=== PATIENT | female | born 1945 | race Caucasian/White ===

== ENCOUNTER 2017-08-14 07:53 | Inpatient (IN) ==
--- NOTE | 2017-08-13 22:16 | Discharge Summary ---
<PetegriseldaJenna L - Last Filed: 08/13/17 22:14> Date of Encounter: 08/13/17 - Discharge Diagnosis (1) Loosening of knee joint prosthesis Priority: Primary Status: Acute Qualifiers: Encounter type: initial encounter Qualified Code(s): T84.038A - Mechanical loosening of other internal prosthetic joint, initial encounter; Z96.659 - Presence of unspecified artificial knee joint; Z96.659 - Presence of unspecified artificial knee joint (2) Status post revision of total knee replacement Priority: Primary Status: Acute Qualifiers: Laterality: right Qualified Code(s): Z96.651 - Presence of right artificial knee joint (3) Hypertension Priority: Secondary Status: Chronic Qualifiers: Hypertension type: essential hypertension Qualified Code(s): I10 - Essential (primary) hypertension (4) Hypothyroid Priority: Secondary Status: Chronic Qualifiers: Hypothyroidism type: unspecified Qualified Code(s): E03.9 - Hypothyroidism , unspecified (5) Asthma Priority: Secondary Status: Chronic Qualifiers: Asthma severity: unspecified severity Asthma persistence: unspecified Asthma complication type: unspecified Qualified Code(s): J45.909 - Unspecified asthma, uncomplicated (6) Hyperlipidemia Priority: Secondary Status: Chronic Qualifiers: Hyperlipidemia type: unspecified Qualified Code(s): E78.5 - Hyperlipidemia , unspecified (7) Sarcoidosis Priority: Secondary Status: Chronic (8) Obesity Priority: Secondary Status: Chronic Qualifiers: Obesity type: unspecified obesity type Obesity classification: unspecified obesity classification Serious obesity comorbidity presence: unspecified whether serious comorbidity present Qualified Code(s): E66.9 - Obesity, unspecified; Z68.41 - Body mass index (BMI) 40.0-44.9, adult; Z68.41 - Body mass index (BMI) 40.0-44.9, adult; Z68.41 - Body mass index (BMI) 40.0-44.9, adult; Z68.41 - Body mass index (BMI) 40.0-44.9, adult (9) Obstructive sleep apnea Priority: Secondary Status: Chronic - Discharge Medications Prescriptions: clonazePAM [Klonopin] 1 mg PO QAM #5 tablet Home Medications: Albuterol Sulfate [Proventil Hfa] 6.7 gm IH QID PRN 07/13/15 [History] Amlodipine [Norvasc] 2.5 mg PO DAILY 07/13/15 [History] ClonazePAM [Klonopin] 1 mg PO QAM 07/13/15 [History] Folic Acid/Mv,Fe,Min [Centrum Chewable Tablet] 1 each PO DAILY 07/13/15 [History ] Furosemide [Lasix] 40 mg PO DAILY 07/13/15 [History] Hyoscyamine Sulfate [Levbid] 0.375 mg PO BID 07/13/15 [History] Levothyroxine [Synthroid] 100 mcg PO DAILY 07/13/15 [History] Losartan [Cozaar] 50 mg PO DAILY 07/13/15 [History] Potassium Chloride 10 meq PO DAILY 07/13/15 [History] [place] Oil/[place]rum-3 Fatty Acids [Fish Oil 500 mg Softgel] 1,000 mg PO DAILY 07/13 [History] Sertraline [Zoloft] 200 mg PO DAILY 07/13/15 [History] Terazosin [Hytrin] 10 mg PO HS 07/13/15 [History] Vitamin B Complex [B Complex] 1 each PO DAILY 07/13/15 [History] Hydrocodone/Acetaminophen [[place] 7.5-325 Tablet] 1 - 2 tab PO Q4H PRN #40 tab [Rx] Aspirin Enteric Coated [Aspirin EC] 325 mg PO DAILY #21 tablet.dr 08/13/17 [Rx] Cetirizine HCl [Zyrtec] 10 mg PO DAILY #3 capsule 08/13/17 [Rx] HYDROcodone/Acet 7.5/325 mg [[place] 7.5-325 mg] 1 tab PO Q6H PRN #28 tablet 08/13 [Rx] Aspirin Enteric Coated [Aspirin EC] 81 mg PO DAILY 08/14/17 [History] Cetirizine HCl [Zyrtec] 10 mg PO DAILY 08/14/17 [History] Cholecalciferol (D-3) [Vitamin D] 1,000 unit PO DAILY 08/14/17 [History] LORazepam [Ativan] 1 mg PO BID 08/14/17 [History] Omeprazole [PriLOSEC] 40 mg PO BID 08/14/17 [History] Tizanidine HCl [Zanaflex] 2 mg PO HS PRN 08/14/17 [History] Vit E AC/Vit K1/Safflower Oil [Vitamin E Oil-Vitamin K] 1 appl TP DAILY [History] clonazePAM [Klonopin] 1 mg PO QAM #5 tablet 08/14/17 [Rx] Allergies/Adverse Reactions: 3 Allergy/AdvReac Type Severity Reaction Status Date / Time edrophonium Allergy Severe SEVERE Verified 08/03/17 15:56 ASTHMA ATTACK Thiothixene Allergy Unknown See Verified 08/03/17 15:56 Comments Triflupromazine Allergy Unknown See Verified 08/03/17 15:56 Comments naproxen [From Naprosyn] Allergy Sneezing Verified 08/03/17 15:56 amitriptyline [From Elavil] AdvReac Mild HEART Verified 08/03/17 15:56 RACING epinephrine AdvReac Mild PATIENT Verified 08/03/17 15:56 STATES INTERFERS WITH MEDS meprobamate AdvReac Mild Confusion Verified 08/03/17 15:56 Nortriptyline AdvReac Mild LOSS OF Verified 08/03/17 15:56 BLADDER CONTROL oxymetazoline AdvReac Mild NASAL Verified 08/03/17 15:56 IRRITATION Primary care physician: Oscar Mcintosh Jr, MD - Patient Status Disposition: Transfer Inpatient Rehab Fac Condition: Good - Discharge Instructions Follow Up With: Oscar Mcintosh Jr, MD [Primary Care Provider] - 10/18/17 11:00 am Hans Albright MD [Partnered Physician] - 06/08/18 8:00 am - Hospital Course Hospital course: Ms. Spence is a 72 year old female - Time Spent with Patient Total time spent providing and/or coordinating discharge services: <Frank Benton - Last Filed: 08/17/17 07:52> Date of Encounter: 08/17/17 Time of Encounter: 07:52 - Discharge Diagnosis (1) Hypertension Priority: Secondary Status: Chronic Qualifiers: Hypertension type: essential hypertension Qualified Code(s): I10 - Essential (primary) hypertension (2) Hypothyroid Priority: Secondary Status: Chronic Qualifiers: Hypothyroidism type: unspecified Qualified Code(s): E03.9 - Hypothyroidism , unspecified (3) Asthma Priority: Secondary Status: Chronic Qualifiers: Asthma severity: unspecified severity Asthma persistence: unspecified Asthma complication type: unspecified Qualified Code(s): J45.909 - Unspecified asthma, uncomplicated (4) Hyperlipidemia Priority: Secondary Status: Chronic Qualifiers: Hyperlipidemia type: unspecified Qualified Code(s): E78.5 - Hyperlipidemia , unspecified (5) Sarcoidosis Priority: Secondary Status: Chronic (6) Sleep apnea Priority: Secondary Status: Chronic Qualifiers: Sleep apnea type: unspecified type Qualified Code(s): G47.30 - Sleep apnea , unspecified (7) Obesity Priority: Secondary Status: Chronic Qualifiers: Obesity type: unspecified obesity type Obesity classification: adult class 3 (BMI >= 40) Serious obesity comorbidity presence: unspecified whether serious comorbidity present Body mass index: BMI 40.0-44.9 Qualified Code(s) : E66.9 - Obesity, unspecified; Z68.41 - Body mass index (BMI) 40.0-44.9, adult ; Z68.41 - Body mass index (BMI) 40.0-44.9, adult; Z68.41 - Body mass index (BMI ) 40.0-44.9, adult; Z68.41 - Body mass index (BMI) 40.0-44.9, adult (8) Obstructive sleep apnea Priority: Secondary Status: Chronic (9) Loosening of knee joint prosthesis Priority: Primary Status: Chronic Qualifiers: Encounter type: subsequent encounter Qualified Code(s): T84.038D - Mechanical loosening of other internal prosthetic joint, subsequent encounter; Z96.659 - Presence of unspecified artificial knee joint; Z96.659 - Presence of unspecified artificial knee joint (10) Status post revision of total knee replacement Priority: Primary Status: Acute Qualifiers: Laterality: right Qualified Code(s): Z96.651 - Presence of right artificial knee joint (11) Acute blood loss anemia Priority: Primary Status: Acute Primary care physician: Oscar Mcintosh Jr, MD - Patient Status Functional capacity at discharge: uses cane/walker Overall status at discharge: patient is progressing back to baseline - Hospital Course Hospital course: Ms. Spence is a 72 year old female Status post revision right total knee. Patient with hemoglobin 8.6 asymptomatic. The patient had an uneventful postoperative course. They received antibiotics and physical therapy and were discharged in stable condition. There will follow -up in the office in 2 weeks. - Time Spent with Patient Total time spent providing and/or coordinating discharge services:
--- NOTE | 2017-08-14 08:09 | History & Physical Report ---
Date of Encounter: 08/14/17 Time of Encounter: 08:08 24 Hour HP Update - Instructions Instructions: If the History and Physical is less than 30 days old and was completed prior to A.M. admission and or procedure and has NOT been updated on calendar day of procedure please complete this update prior to performing procedure. - Update Patient reports changes in Medical Condition: No Changes in examination, assessment, or condition: No Changes in Medication: No Preop tests/diagnostics Reviewed: Yes Surgery Remains Indicated: Yes Consent for Planned Operative Procedure(s) Verified: Yes - Pre-Operative Checklist Preoperative Checklist Indicated: No Prophylactic Antibiotic Ordered: Yes Is VTE Prophylaxis Indicated?: Yes
[2017-08-14] MEDS ORDERED: *HR* FentaNYL (PF) 100 MCG/2 ML VIAL ONE (08:16)
[2017-08-14] MEDS ORDERED: *HR* Propofol 200 MG/20 ML VIAL IVP ONE (08:16)
[2017-08-14] MEDS ORDERED: Lidocaine -MPF 2% 2 ML VIAL ONE ×2 (08:16→10:22)
[2017-08-14] MEDS ORDERED: Ringers Solution, Lactated 1,000 ML IVC SCH ×2 (08:30→13:47)
[2017-08-14] MEDS ORDERED: Albuterol 2.5 MG/3 ML NEBULIZER IH ONE (08:30)
[2017-08-14] MEDS ORDERED: Lidocaine -MPF 1% 2 ML VIAL ID ONE (08:30)
[2017-08-14] MEDS ORDERED: CeFAZolin Pre 2,000 MG/100 ML 2,000 MG/100 ML BAG IVPB ONE (08:30)
[2017-08-14] MEDS ORDERED: Albuterol 2.5 MG/3 ML NEBULIZER ONE (08:33)
[2017-08-14] MEDS ORDERED: *HR* Labetalol 20 MG/4 ML SYRINGE IVP PRN (08:59)
[2017-08-14] MEDS ORDERED: *HR* Promethazine 25 MG/ML VIAL IVP PRN (08:59)
[2017-08-14] MEDS ORDERED: Ethanol\\Acetic Acid\\Na Ace\\Ben 1,000 ML IRRIG.SOLN IR ONE (09:02)
[2017-08-14] MEDS ORDERED: Gabapentin 300 MG CAPSULE PO STA (09:03)
[2017-08-14] MEDS ORDERED: Acetaminophen IV 1,000 MG/100 ML INFUS..BTL IVPB ONE (09:03)
--- NOTE | 2017-08-14 09:07 | Anesthesia Evaluation PreOp ---
Date of Encounter: 08/14/17 Time of Encounter: 09:05 - Past History Planned Operation: REvision R-TKR, partial patellectomy Cardiac History: HTN (maitnained on Norvasc, Cozaar, Lasix), Hyperlipidemia ( maintained on Fish Oil), Other (Nuclear Stress 10/2014 - LVEF 69%. Perfusion negative for ischemia/infarct) Pulmonary History: Asthma, COPD (maintained on Proventil, Atrovent), RAHEL Dx ( NOt compliant w/ CPAP) PASTER HAT LINING History: Other (Anxiety/Depression maintained on ATivan. VErtigo maintianed on Meclizine. BiPolar d/o) Other Medical History: Renal (Hx R-kidney Ca s/p mass exicision), Thyroid, GERD (maintained on Prilosec), Other (Irritable bowel syndrome maintained on Hyoscamine, Hx of Sarcoidosis. Cervical spine problem/radiates R-arm sees Chiropractory & takes [place]) Anesthesia History: No Prior Anesthetic Complications, Past Anesthesia (L-TKR 2014, R-TKR 06/2015, septoplasty/Turbinates, x 2, Bladder suspension,) Alcohol Use: none Drug use: none Medications and Allergies Albuterol Sulfate [Proventil Hfa] 6.7 gm IH QID PRN 07/13/15 [History] Amlodipine [Norvasc] 2.5 mg PO DAILY 07/13/15 [History] ClonazePAM [Klonopin] 1 mg PO QAM 07/13/15 [History] Folic Acid/Mv,Fe,Min [Centrum Chewable Tablet] 1 each PO DAILY 07/13/15 [History ] Furosemide [Lasix] 40 mg PO DAILY 07/13/15 [History] Hyoscyamine Sulfate [Levbid] 0.375 mg PO BID 07/13/15 [History] Levothyroxine [Synthroid] 100 mcg PO DAILY 07/13/15 [History] Losartan [Cozaar] 50 mg PO DAILY 07/13/15 [History] Potassium Chloride 10 meq PO DAILY 07/13/15 [History] [place] Oil/[place]-3 Fatty Acids [Fish Oil 500 mg Softgel] 1,000 mg PO DAILY 07/13 [History] Sertraline [Zoloft] 200 mg PO DAILY 07/13/15 [History] Terazosin [Hytrin] 10 mg PO HS 07/13/15 [History] Vitamin B Complex [B Complex] 1 each PO DAILY 07/13/15 [History] Hydrocodone/Acetaminophen [[place] 7.5-325 Tablet] 1 - 2 tab PO Q4H PRN #40 tab [Rx] Aspirin Enteric Coated [Aspirin EC] 325 mg PO DAILY #21 tablet.dr 08/13/17 [Rx] Cetirizine HCl [Zyrtec] 10 mg PO DAILY #3 capsule 08/13/17 [Rx] HYDROcodone/Acet 7.5/325 mg [[place] 7.5-325 mg] 1 tab PO Q6H PRN #28 tablet 08/13 [Rx] Aspirin Enteric Coated [Aspirin EC] 81 mg PO DAILY 08/14/17 [History] Cetirizine HCl [Zyrtec] 10 mg PO DAILY 08/14/17 [History] Cholecalciferol (D-3) [Vitamin D] 1,000 unit PO DAILY 08/14/17 [History] LORazepam [Ativan] 1 mg PO BID 08/14/17 [History] Omeprazole [PriLOSEC] 40 mg PO BID 08/14/17 [History] Tizanidine HCl [Zanaflex] 2 mg PO HS PRN 08/14/17 [History] Vit E AC/Vit K1/Safflower Oil [Vitamin E Oil-Vitamin K] 1 appl TP DAILY [History] 3 Allergy/AdvReac Type Severity Reaction Status Date / Time edrophonium Allergy Severe SEVERE Verified 08/03/17 15:56 ASTHMA ATTACK Thiothixene Allergy Unknown See Verified 08/03/17 15:56 Comments Triflupromazine Allergy Unknown See Verified 08/03/17 15:56 Comments naproxen [From Naprosyn] Allergy Sneezing Verified 08/03/17 15:56 amitriptyline [From Elavil] AdvReac Mild HEART Verified 08/03/17 15:56 RACING epinephrine AdvReac Mild PATIENT Verified 08/03/17 15:56 STATES INTERFERS WITH MEDS meprobamate AdvReac Mild Confusion Verified 08/03/17 15:56 Nortriptyline AdvReac Mild LOSS OF Verified 08/03/17 15:56 BLADDER CONTROL oxymetazoline AdvReac Mild NASAL Verified 08/03/17 15:56 IRRITATION - Meds/Allergy Pre-op Review Medications Reviewed: Yes Allergies Reviewed: Yes Beta Blockers on Current Med List: No Anesthesia Results - Labs Laboratory Tests 08/03/17 08/03/17 08/03/17 15:56 15:56 15:56 WBC 5.3 Hgb 11.8 Hct 36.6 Plt Count 254 PT 10.6 INR 1.0 APTT 35.0 Sodium 143 Potassium 3.9 Chloride 104 Carbon Dioxide 31 H BUN 21 H Creatinine 0.80 Est GFR ( Amer) > 60 Anesthesia Exam O2 Sat Height 1.52 m Height 1.52 m Height 1.52 m Weight 101.151 kg Weight 101.151 kg Weight 101.151 kg O2 Sat by Pulse Oximetry 94 O2 Sat by Pulse Oximetry 94 Vital Signs Temp Pulse Resp BP Pulse Ox 97.9 F 80 18 141/81 94 08/14/17 08:31 08/14/17 08:31 08/14/17 08:31 08/14/17 08:31 08/14/17 08:31 Weight: 5'1" NPO (# of Hours): 223# BMI = 44 - HEENT Pupil (Motor): Pupils equal, EOMI Mallampati: III Teeth: Normal (Fair dentition) Oral Opening: Greater than 3 - PASTER HAT LINING LOC: Oriented PASTER HAT LINING Motor: Normal RUE, Normal LUE, Normal RLE, Normal LLE, Normal Face PASTER HAT LINING Sensory: Normal: RUE, LUE, RLE, LLE, Face - Cardiac Rhythm: Regular Murmur: None - Pulmonary Breath Sounds: bilateral Clear Respiratory Effort: Symmetrical Anesthesia Assess/Plan ASA Score: 3 (MO, RAHEL, Asthma, HTN, HYpothyroidism, GERD, BiPolar d/o.) Modified Gautier Scale for Level of Consciousness: Cooperative, oriented, and tranquil Anesthetic Plan: General, Regional Monitoring Plan: Standard Monitors Recovery Plan: PACU Anes Supervising Prov Stmt: Pt seen/evaluated, R&B Discussed, questions answered and consent obtained. Lebron Cardenas MD
[2017-08-14] MEDS ORDERED: Scopolamine Patch 1.5 MG PATCH.TD72 ONE (09:34)
--- NOTE | 2017-08-14 10:07 | Anesthesia Procedures ---
Date of Encounter: 08/14/17 Time of Encounter: :50 Procedures: Anesthesia - Nerve Block Procedure Date: 08/14/17 Time: 50 Checklist: Correct Patient Identifier Correct side: Right Blood Thinner: No Monitor Applied: EKG, BP, Pulse Oximetry Supplemental Oxygen via Nasal Cannula (L/min): 2 Sedation: Fentanyl (mcg): 100 Indication: Post Op Analgesia Pre-op Neuro Deficits: No Block Type: Femoral, Other (iPACK) Catheter placed: No Sterile Technique: Yes Ultrasound used: Yes Anatomy identified: Yes Visual spread of Local: Yes Neuro Stimulation: Yes Nerve Stimulator Range: 0.2 - 0.4 mA Blood on Needle Aspiration: No Smooth Injection of Local: Yes Pain with Injection of Local: No Prep: Chlorhexadine Needle: 22 x 50 mm Stimuplex, 21 x 100 mm Stimuplex Local: 0.25% Bupivicaine w/Clonidine 20 mcg/cc (for iPACK), Ropivacaine (0.5% with 8 of decadron) Volume (cc): 40 Number of Attempts: 1 Complications: None/effective block Vitals: vss
[2017-08-14] MEDS ORDERED: *HR* Morphine 10 MG/ML VIAL ONE (10:21)
[2017-08-14] MEDS ORDERED: Ondansetron 4 MG/2 ML VIAL ONE (10:22)
[2017-08-14] MEDS ORDERED: ROPIVACAINE HCL/PF 0.5% 30 ML VIAL ONE (10:24)
[2017-08-14] MEDS ORDERED: Bupivacaine/Clonidine Syringe 1 EACH SYRINGE ONE (10:24)
--- NOTE | 2017-08-14 10:49 | Orthopedic Operative Note ---
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 After general anesthesia was administered the operative knee was examined. Findings were noted in the exam under anesthesia. The operative extremity was prepped and draped in sterile surgical fashion. The patient received IV antibiotics prior to skin incision. A standard midline incision was made centered over the patella. The incision was made through the skin and subcutaneous tissue through the old incision. A medial parapatellar tendon approach was performed. Care was taken to preserve tissue along the medial aspect of the patella. And to protect the patella tendon. The deep MCL was released off the medial tibia. The infra patella fat pad was excised. Cultures were obtained as well as Gram stain. Patella was everted. Bipartite patella was excised careful dissection was performed to avoid injury to the extensor mechanism. The knee was brought into flexion the tibial poly-was removed. The femur was well fixed. Attention was then turned to the tibial component. The tibial component was loose and removed with an osteotome without any bone loss. Tibia was recut just below the level of the cement mantle. The tibia was prepared first sized to a 3 reamed to a 14 x 50 stem. The finishing punch was seated. Trial had good fit and fixation. Trial reduction revealed full extension and full flexion no varus valgus instability with an 12 PS Sophy. Trial components removed knee sat for 2 minutes with a Betadine saline solution. It was irrigated out with pulse irrigation. Components were assembled on the back table. The tibia cemented. The 12 PS Sophy was seated and secure. The had full flexion and full extension and excellent patella tracking no varus valgus instability. After the cement hardened the knee was irrigated out again. The knee was closed by the PA. The knee was taken through a range of motion had excellent patella tracking. The extensor mechanism was closed with a running #2 Fiberwire suture and a running #2 PDS suture. The deep tissue was irrigated and closed deep with #1 PDS suture superficially with 0 PDS suture. The skin was closed with Dermabond and skin nivia. The patient was placed in a sterile dressing and postoperative brace. They were extubated and transferred to recovery room in stable condition. Anesthesia: GETA Surgeon: Frank Benton Condition: stable Disposition: PACU
[2017-08-14] MEDS: *HR* HYDROmorphone (PF) 1 MG/ML SYRINGE IVP PRN ×4 (11:29→12:21)
[2017-08-14 11:42] LABS: Hematocrit 30.5 % (35.3-44.9); Hemoglobin 9.9 g/dL (11.5-15.4)
[2017-08-14] MEDS ORDERED: *HR* Magnesium Sulfate 1 GM/2 ML VIAL ONE (12:05)
[2017-08-14] MEDS ORDERED: Ketorolac 30 MG/ML VIAL ONE (12:05)
[2017-08-14] MEDS ORDERED: Lidocaine/EPI 1:100k 2% 20 ML VIAL ONE (12:34)
--- NOTE | 2017-08-14 12:55 | Anesthesia Procedures ---
Date of Encounter: 08/14/17 Time of Encounter: 12:45 Procedures: Anesthesia - Nerve Block Procedure Date: 08/14/17 Time: 12:45 Allergies/Adv Reactions: see emr Pre-op Diagnosis: right knee OA Surgical Procedure: right TKA Checklist: Correct Patient Identifier, Correct procedure, History checked Correct side: Right Blood Thinner: No Monitor Applied: EKG, BP, Pulse Oximetry Supplemental Oxygen via Nasal Cannula (L/min): 2 Indication: Post Op Analgesia (rescue block) Pre-op Neuro Deficits: No Block Type: Femoral (20mL), Other (Adductor Canal - 10mL) Catheter placed: No Sterile Technique: Yes Ultrasound used: Yes Anatomy identified: Yes Visual spread of Local: Yes Neuro Stimulation: No Blood on Needle Aspiration: No Smooth Injection of Local: Yes Pain with Injection of Local: No Prep: Chlorhexadine Needle: 22 x 50 mm Stimuplex Local: Other (0.25% bupivacaine 20mL + 2% lidocaine w/ epi 10mL) Volume (cc): 30 Number of Attempts: 1 Complications: None/effective block Vitals: Vital Signs/O2 Sat/Glucose, Most Recent Temp Pulse Resp BP Pulse Ox 97.2 F L 78 16 137/77 96 08/14/17 12:52 08/14/17 12:52 08/14/17 12:52 08/14/17 12:42 08/14/17 12:52
--- NOTE | 2017-08-14 12:57 | Anesthesia Evaluation Post Op ---
Date of Encounter: 08/14/17 Time of Encounter: 12:55 - Vital Signs Vital Signs: Vital Signs/O2 Sat/Glucose, Most Recent Temp Pulse Resp BP Pulse Ox 97.2 F L 78 16 137/77 96 08/14/17 12:52 08/14/17 12:52 08/14/17 12:52 08/14/17 12:42 08/14/17 12:52 - Lungs Lungs: Clear Ascult./Percussion - Airway Airway: Non-obstructed - Cardiovascular Regular Rate - Mental Status Mental Status: Alert & Oriented, Answers Appropriately - Pain Pain Scale: 3 (able to sleep between care) - Nausea Vomiting Nausea Vomiting: Not Present - Hydration Hydration: NPO - Discharge PostOp Status: Transfer Patient to floor
[2017-08-14] MEDS ORDERED: Temazepam 15 MG CAPSULE PO PRN (13:47)
[2017-08-14] MEDS ORDERED: Sennosides 8.6 MG TABLET PO PRN (13:47)
[2017-08-14] MEDS ORDERED: tiZANidine 4 MG TABLET PO PRN (13:47)
[2017-08-14] MEDS ORDERED: MOM Conc 10 ML UD.LIQ PO PRN (13:47)
[2017-08-14] MEDS ORDERED: Ondansetron 4 MG/2 ML VIAL IVP PRN (13:47)
[2017-08-14] MEDS ORDERED: Naloxone 0.4 MG/ML INJ IVP PRN (13:47)
--- NOTE | 2017-08-14 14:16 | Physician Discharge Referral ---
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 Status: Chronic (2) Status post revision of total knee replacement Priority: Primary Status: Acute (3) Hypertension Priority: Secondary Status: Chronic (4) Hypothyroid Priority: Secondary Status: Chronic (5) Asthma Priority: Secondary Status: Chronic (6) Hyperlipidemia Priority: Secondary Status: Chronic (7) Sarcoidosis Priority: Secondary Status: Chronic (8) Obesity Priority: Secondary Status: Chronic (9) Obstructive sleep apnea Priority: Secondary Status: Chronic Expected Duration of Placement: < 30 days Prognosis: Good Aware of Diagnosis: Patient Aware of Prognosis: Patient - Transfer Medications Prescriptions: clonazePAM [Klonopin] 1 mg PO QAM #5 tablet Home Medications: Albuterol Sulfate [Proventil Hfa] 6.7 gm IH QID PRN 07/13/15 [History] Amlodipine [Norvasc] 2.5 mg PO DAILY 07/13/15 [History] ClonazePAM [Klonopin] 1 mg PO QAM 07/13/15 [History] Folic Acid/Mv,Fe,Min [Centrum Chewable Tablet] 1 each PO DAILY 07/13/15 [History ] Furosemide [Lasix] 40 mg PO DAILY 07/13/15 [History] Hyoscyamine Sulfate [Levbid] 0.375 mg PO BID 07/13/15 [History] Levothyroxine [Synthroid] 100 mcg PO DAILY 07/13/15 [History] Losartan [Cozaar] 50 mg PO DAILY 07/13/15 [History] Potassium Chloride 10 meq PO DAILY 07/13/15 [History] [place] Oil/[place]-3 Fatty Acids [Fish Oil 500 mg Softgel] 1,000 mg PO DAILY 07/13 [History] Sertraline [Zoloft] 200 mg PO DAILY 07/13/15 [History] Terazosin [Hytrin] 10 mg PO HS 07/13/15 [History] Vitamin B Complex [B Complex] 1 each PO DAILY 07/13/15 [History] Hydrocodone/Acetaminophen [[place] 7.5-325 Tablet] 1 - 2 tab PO Q4H PRN #40 tab [Rx] Aspirin Enteric Coated [Aspirin EC] 325 mg PO DAILY #21 tablet. 08/13/17 [Rx] Cetirizine HCl [Zyrtec] 10 mg PO DAILY #3 capsule 08/13/17 [Rx] HYDROcodone/Acet 7.5/325 mg [[place] 7.5-325 mg] 1 tab PO Q6H PRN #28 tablet 08/13 [Rx] Aspirin Enteric Coated [Aspirin EC] 81 mg PO DAILY 08/14/17 [History] Cetirizine HCl [Zyrtec] 10 mg PO DAILY 08/14/17 [History] Cholecalciferol (D-3) [Vitamin D] 1,000 unit PO DAILY 08/14/17 [History] LORazepam [Ativan] 1 mg PO BID 08/14/17 [History] Omeprazole [PriLOSEC] 40 mg PO BID 08/14/17 [History] Tizanidine HCl [Zanaflex] 2 mg PO HS PRN 08/14/17 [History] Vit E AC/Vit K1/Safflower Oil [Vitamin E Oil-Vitamin K] 1 appl TP DAILY [History] clonazePAM [Klonopin] 1 mg PO QAM #5 tablet 08/14/17 [Rx] Allergies/Adverse Reactions: 3 Allergy/AdvReac Type Severity Reaction Status Date / Time edrophonium Allergy Severe SEVERE Verified 08/03/17 15:56 ASTHMA ATTACK Thiothixene Allergy Unknown See Verified 08/03/17 15:56 Comments Triflupromazine Allergy Unknown See Verified 08/03/17 15:56 Comments naproxen [From Naprosyn] Allergy Sneezing Verified 08/03/17 15:56 amitriptyline [From Elavil] AdvReac Mild HEART Verified 08/03/17 15:56 RACING epinephrine AdvReac Mild PATIENT Verified 08/03/17 15:56 STATES INTERFERS WITH MEDS meprobamate AdvReac Mild Confusion Verified 08/03/17 15:56 Nortriptyline AdvReac Mild LOSS OF Verified 08/03/17 15:56 BLADDER CONTROL oxymetazoline AdvReac Mild NASAL Verified 08/03/17 15:56 IRRITATION - Respiratory Orders None Smoking Cessation: Smoking cessation has been advised. For more information, call the [place] Tobacco Quit Line at 0-639-OVUD-NOW. - Ancillary Orders May use pressure relief devices daily prn, May go on HARSHAL w/family/respon constitution party w /meds at nurse discretion PRN, May consult with Dentist, Mental Health Worker, Support Services Manager PRN - Mobility Orders Chair, Ambulate - Rehabiliation Orders Rehab Potential: Good Rehab Orders: ROM Exercises, Evaluation for Physical Therapy, Evaluation for Occupational Therapy - Treatments Skin tear care topically daily PRN per policy List/Other: Opsite placed. Keep dressing intact until first follow up appointment. If > 50% saturated,notify offfice, remove dressing and place appropriate dressing back in place. Dressing is water resistant, not water-proof. OK to shower, but do not get dressing wet. Zipline Closure in place, to be removed at POD#14-16 PT/OT. WBAT to affected extremity. Follow Total Knee Precautions x 6 weeks. Stay in brace at night only. Plan to discontinue brace after first post- operative appointment. ICE and elevate extremity frequently throughout the day. Encourage ambulation exercises. - Diet Orders Regular CERTIFICATION: I certify that the transfer of the above named patient to an Extended Care Facility is necessary for the continuing treatment of the diagnosis listed. The above information is true and accurate reflection of patient's current condition. Confidential - Redisclosure prohibited without a patient's written consent.
[2017-08-14] MEDS: ceFAZolin 2,000 MG in D5% in Water 100 ML IVPB SCH (17:28)
[2017-08-14] MEDS: *HR* Enoxaparin 30 MG/0.3 ML SYRINGE SQ SCH (17:28)
[2017-08-14] MEDS ORDERED: *HR* Enoxaparin 30 MG/0.3 ML SYRINGE SQ SCH (18:00)
[2017-08-14] MEDS: Hyoscyamine SL 0.125 MG TAB.SUBL PO SCH (19:59)
[2017-08-14] MEDS: *HR* LORazepam 1 MG TABLET PO SCH (20:00)
[2017-08-14] MEDS: *HR* HYDROcodone/Acet 5/325 mg TABLET PO PRN (20:09)
[2017-08-15] MEDS: ceFAZolin 2,000 MG in D5% in Water 100 ML IVPB SCH (00:08)
[2017-08-15] MEDS: *HR* Enoxaparin 30 MG/0.3 ML SYRINGE SQ SCH ×2 (04:54→17:12)
[2017-08-15] MEDS: *HR* HYDROcodone/Acet 5/325 mg TABLET PO PRN ×2 (04:54→09:18)
[2017-08-15 05:11] LABS: Hematocrit 32.2 % (35.3-44.9); Hemoglobin 10.4 g/dL (11.5-15.4)
[2017-08-15 05:28] LABS: BUN/Creatinine Ratio 27 (6-26); Blood Urea Nitrogen 22 mg/dL (7-20); Calcium 9.4 mg/dL (8.6-10.8); Carbon Dioxide 28 mEq/L (19-29); Chloride 108 mEq/L (98-109); Glucose 134 mg/dL (70-99); Osmolality,Calculated 301 (280-300); Potassium 4.5 mEq/L (3.5-4.5); Sodium 143 mEq/L (136-145); eGFR For African Americans > 60 (> 60); eGFR For Non-African Americans > 60 (> 60)
--- NOTE | 2017-08-15 06:43 | Orthopedics Progress Note ---
Date of Encounter: 08/15/17 Time of Encounter: 06:43 - Assessment and Plan (1) Hypertension Current Visit: No Status: Chronic Qualifiers: Hypertension type: essential hypertension Qualified Code(s): I10 - Essential (primary) hypertension (2) Hypothyroid Current Visit: No Status: Chronic Qualifiers: Hypothyroidism type: unspecified Qualified Code(s): E03.9 - Hypothyroidism , unspecified (3) Asthma Current Visit: No Status: Chronic Qualifiers: Asthma severity: unspecified severity Asthma persistence: unspecified Asthma complication type: unspecified Qualified Code(s): J45.909 - Unspecified asthma, uncomplicated (4) Hyperlipidemia Current Visit: No Status: Chronic Qualifiers: Hyperlipidemia type: unspecified Qualified Code(s): E78.5 - Hyperlipidemia , unspecified (5) Sarcoidosis Current Visit: No Status: Chronic (6) Sleep apnea Current Visit: No Status: Chronic Qualifiers: Sleep apnea type: unspecified type Qualified Code(s): G47.30 - Sleep apnea , unspecified (7) Obesity Current Visit: No Status: Chronic Qualifiers: Obesity type: unspecified obesity type Obesity classification: adult class 3 (BMI >= 40) Serious obesity comorbidity presence: unspecified whether serious comorbidity present Body mass index: BMI 40.0-44.9 Qualified Code(s) : E66.9 - Obesity, unspecified; Z68.41 - Body mass index (BMI) 40.0-44.9, adult ; Z68.41 - Body mass index (BMI) 40.0-44.9, adult; Z68.41 - Body mass index (BMI ) 40.0-44.9, adult; Z68.41 - Body mass index (BMI) 40.0-44.9, adult (8) Obstructive sleep apnea Current Visit: No Status: Chronic (9) Loosening of knee joint prosthesis Current Visit: No Status: Chronic Qualifiers: Encounter type: subsequent encounter Qualified Code(s): T84.038D - Mechanical loosening of other internal prosthetic joint, subsequent encounter; Z96.659 - Presence of unspecified artificial knee joint; Z96.659 - Presence of unspecified artificial knee joint (10) Status post revision of total knee replacement Current Visit: No Status: Acute Qualifiers: Laterality: right Qualified Code(s): Z96.651 - Presence of right artificial knee joint Subjective Interval history: Patient was seen this morning doing well without complaints. Afebrile vital signs stable. Operative extremity: Neurovascularly intact Dressing clean dry and intact Calves nontender Assessment and plan: Continue with postoperative care Hematocrit 32 Objective Vital signs: Vital Signs Temp Pulse Resp BP Pulse Ox 08/15/17 04:33 97.6 F 82 17 137/57 96 08/15/17 00:02 97.6 F 65 17 124/68 97 08/14/17 20:36 97.6 F 76 17 116/67 96 08/14/17 16:41 97.7 F 79 15 147/63 96 08/14/17 15:50 97.7 F 71 15 111/69 95 08/14/17 14:45 97.7 F 74 15 109/64 96 08/14/17 14:19 97.6 F 81 15 107/55 96 08/14/17 13:45 97.6 F 79 14 124/93 95 08/14/17 13:22 97.0 F L 78 16 108/72 96 08/14/17 13:12 79 16 112/68 93 08/14/17 13:02 71 14 106/70 96 08/14/17 12:52 97.2 F L 78 16 119/78 96 08/14/17 12:42 76 16 137/77 94 08/14/17 12:32 73 14 116/63 92 08/14/17 12:22 97.0 F L 71 14 122/68 93 08/14/17 12:12 76 16 140/78 93 08/14/17 12:02 71 16 145/84 96 08/14/17 11:52 97.0 F L 73 16 131/58 98 08/14/17 11:42 72 16 125/72 93 08/14/17 11:32 70 16 122/74 96 08/14/17 11:22 97.0 F L 68 14 119/62 99 08/14/17 09:39 82 16 154/72 97 08/14/17 08:56 18 141/81 94 08/14/17 08:31 97.9 F 80 18 141/81 94 Intake and Output 08/14/17 08/14/17 08/15/17 15:59 23:59 07:59 Intake Total 150 / 150 100 / 100 Output Total 300 / 300 200 / 200 Balance -300 / -300 150 / 150 -100 / -100 Intake: IV Fluids 100 / 100 Ancef 2,000 MG In Dextrose 5% 100 / 100 100 ML @ 200 mls/hr IVPB Q8HR [facility] Rx#:[id number] Oral 50 / 50 100 / 100 Output: Urine 200 / 200 Estimated Blood Loss 300 / 300 Other: # Voids 1 Weight 101.151 kg 102 kg Patient Weight 08/15/17 23:59 Weight 102 kg - Labs CBC & BMP: 08/15/17 05:01 08/15/17 05:01 Labs: Abnormal lab results Hgb 10.4 g/dL (11.5-15.4) L 08/15/17 05:01 Hct 32.2 % (35.3-44.9) L 08/15/17 05:01 BUN 22 mg/dL (7-20) H 08/15/17 05:01 BUN/Creatinine Ratio 27 (6-26) H 08/15/17 05:01 Glucose 134 mg/dL (70-99) H 08/15/17 05:01 Calculated Osmolality 301 (280-300) H 08/15/17 05:01 - VTE Documentation of Mechanical Device: Venous foot pump, device Consult Discharge Plan - Plan Referrals: Oscar Mcintosh Jr, MD [Primary Care Provider] - Prescriptions: clonazePAM [Klonopin] 1 mg PO QAM #5 tablet
[2017-08-15] MEDS: *HR* HYDROmorphone (PF) 1 MG/ML SYRINGE IVP PRN ×2 (08:12→13:23)
[2017-08-15] MEDS: Vitamin B Complex/Vit C/Vit E 1 EACH TABLET PO SCH ×2 (08:12→10:48)
[2017-08-15] MEDS: Cholecalciferol (D-3) 1,000 UNIT TABLET PO SCH ×2 (08:13→10:48)
[2017-08-15] MEDS: Loratadine 10 MG TABLET PO SCH (08:15)
[2017-08-15] MEDS: amLODIPine 5 MG TABLET PO SCH (08:15)
[2017-08-15] MEDS: clonazePAM 1 MG TABLET PO SCH (08:16)
[2017-08-15] MEDS: *HR* LORazepam 1 MG TABLET PO SCH ×3 (08:16→23:46)
[2017-08-15] MEDS: Hyoscyamine SL 0.125 MG TAB.SUBL PO SCH ×2 (08:17→21:25)
[2017-08-15] MEDS: Multivit/Ca/Min/Fe/FA 1 TAB TABLET PO SCH ×2 (08:17→10:48)
[2017-08-15] MEDS: Aspirin Enteric Coated 81 MG Tablet PO SCH (08:17)
[2017-08-15] MEDS: Furosemide 40 MG TABLET PO SCH (08:17)
[2017-08-15] MEDS: VIT K1 TP SCH (09:09)
[2017-08-15] MEDS: VIT E AC TP SCH (09:09)
[2017-08-15] MEDS: [UNRECOGNIZED DRUG - OTHER] TP SCH (09:09)
[2017-08-15] MEDS: FISH OIL 1000 MG PO SCH (09:09)
--- NOTE | 2017-08-15 12:31 | Event Note ---
Date of Encounter: 08/15/17 Time of Encounter: 12:29 PCR - Right TKR Revision Tibia, partial patellectomy 08/15 Gram Stain - no bacteria POD#.1 Comorbidities: Asthma, RAHEL - CPAP, HTN, Chronic pain Labs: Stable Patient was on bedside commode during PCR rounds, I did not speak with patient. Plan reviewed and discussed with charge nurse and navigator. Pain control: Chronic pain - uncontrolled currently Will change her back to [place] 7.5/325 q 4 hours x 24 hours - Pain meds printed for ECF Clonazepam printed for ECF. Participating in PT. All questions and concerns addressed. Educated on use of incentive spirometer, ambulation, and hydration. Patient educated on post-operative restrictions and care. Addressed: See above D/C plan: D/C to ECF - continuity placed.
[2017-08-15] MEDS: *HR* HYDROcodone/Acet 7.5/325 mg TABLET PO SCH ×2 (15:47→21:26)
[2017-08-15] MEDS ORDERED: Ketorolac 15 MG/ML VIAL IVP PRN (16:48)
[2017-08-16] MEDS: *HR* HYDROcodone/Acet 7.5/325 mg TABLET PO SCH ×2 (00:05→05:02)
[2017-08-16] MEDS: *HR* Enoxaparin 30 MG/0.3 ML SYRINGE SQ SCH ×2 (05:02→17:15)
[2017-08-16 06:16] LABS: Hematocrit 27.3 % (35.3-44.9)
[2017-08-16 06:19] LABS: Hemoglobin 8.6 g/dL (11.5-15.4)
[2017-08-16 06:33] LABS: BUN/Creatinine Ratio 25 (6-26); Blood Urea Nitrogen 20 mg/dL (7-20); Calcium 8.9 mg/dL (8.6-10.8); Carbon Dioxide 32 mEq/L (19-29); Chloride 107 mEq/L (98-109); Glucose 101 mg/dL (70-99); Osmolality,Calculated 299 (280-300); Potassium 3.9 mEq/L (3.5-4.5); Sodium 143 mEq/L (136-145); eGFR For African Americans > 60 (> 60); eGFR For Non-African Americans > 60 (> 60)
--- NOTE | 2017-08-16 08:08 | Orthopedics Progress Note ---
Date of Encounter: 08/16/17 Time of Encounter: 08:08 - Assessment and Plan (1) Hypertension Current Visit: No Status: Chronic Qualifiers: Hypertension type: essential hypertension Qualified Code(s): I10 - Essential (primary) hypertension (2) Hypothyroid Current Visit: No Status: Chronic Qualifiers: Hypothyroidism type: unspecified Qualified Code(s): E03.9 - Hypothyroidism , unspecified (3) Asthma Current Visit: No Status: Chronic Qualifiers: Asthma severity: unspecified severity Asthma persistence: unspecified Asthma complication type: unspecified Qualified Code(s): J45.909 - Unspecified asthma, uncomplicated (4) Hyperlipidemia Current Visit: No Status: Chronic Qualifiers: Hyperlipidemia type: unspecified Qualified Code(s): E78.5 - Hyperlipidemia , unspecified (5) Sarcoidosis Current Visit: No Status: Chronic (6) Sleep apnea Current Visit: No Status: Chronic Qualifiers: Sleep apnea type: unspecified type Qualified Code(s): G47.30 - Sleep apnea , unspecified (7) Obesity Current Visit: No Status: Chronic Qualifiers: Obesity type: unspecified obesity type Obesity classification: adult class 3 (BMI >= 40) Serious obesity comorbidity presence: unspecified whether serious comorbidity present Body mass index: BMI 40.0-44.9 Qualified Code(s) : E66.9 - Obesity, unspecified; Z68.41 - Body mass index (BMI) 40.0-44.9, adult ; Z68.41 - Body mass index (BMI) 40.0-44.9, adult; Z68.41 - Body mass index (BMI ) 40.0-44.9, adult; Z68.41 - Body mass index (BMI) 40.0-44.9, adult (8) Obstructive sleep apnea Current Visit: No Status: Chronic (9) Loosening of knee joint prosthesis Current Visit: No Status: Chronic Qualifiers: Encounter type: subsequent encounter Qualified Code(s): T84.038D - Mechanical loosening of other internal prosthetic joint, subsequent encounter; Z96.659 - Presence of unspecified artificial knee joint; Z96.659 - Presence of unspecified artificial knee joint (10) Status post revision of total knee replacement Current Visit: No Status: Acute Qualifiers: Laterality: right Qualified Code(s): Z96.651 - Presence of right artificial knee joint (11) Acute blood loss anemia Current Visit: No Status: Acute Subjective Interval history: Patient was seen this morning doing well complains of pain right leg. Afebrile vital signs stable. Operative extremity: Neurovascularly intact Dressing clean dry and intact Calves nontender Assessment and plan: Continue with postoperative care hemoglobin 8.6 Objective Vital signs: Vital Signs Temp Pulse Resp BP Pulse Ox 08/16/17 07:12 100.0 F H 75 16 160/66 94 08/16/17 03:51 99.6 F 72 16 149/63 95 08/15/17 23:15 100.3 F H 99 18 159/66 96 08/15/17 18:42 98.2 F 77 17 127/68 95 08/15/17 16:35 98.3 F 76 17 127/66 94 08/15/17 15:57 93 08/15/17 13:21 86 129/66 Intake and Output 08/15/17 08/16/17 08/16/17 23:59 07:59 15:59 Intake Total 50 / 50 Output Total 1300 / 1300 0 / 0 Balance -1250 / -1250 0 / 0 Intake: Oral 50 / 50 Output: Urine 1300 / 1300 0 / 0 Other: # Voids 1 Weight 102.5 kg Patient Weight 08/16/17 23:59 Weight 102.5 kg - Labs CBC & BMP: 08/16/17 05:45 08/16/17 05:45 Labs: Abnormal lab results Hgb 8.6 g/dL (11.5-15.4) L D 08/16/17 05:45 Hct 27.3 % (35.3-44.9) L 08/16/17 05:45 Carbon Dioxide 32 mEq/L (19-29) H 08/16/17 05:45 Glucose 101 mg/dL (70-99) H 08/16/17 05:45 - VTE Documentation of Mechanical Device: Venous foot pump, device Consult Discharge Plan - Plan Referrals: Oscar Mcintosh Jr, MD [Primary Care Provider] - 10/18/17 11:00 am Hans Albright MD [Partnered Physician] - 06/08/18 8:00 am Prescriptions: clonazePAM [Klonopin] 1 mg PO QAM #5 tablet
[2017-08-16] MEDS: Hyoscyamine SL 0.125 MG TAB.SUBL PO SCH ×2 (09:09→20:40)
[2017-08-16] MEDS: Aspirin Enteric Coated 81 MG Tablet PO SCH (09:09)
[2017-08-16] MEDS: Cholecalciferol (D-3) 1,000 UNIT TABLET PO SCH (09:10)
[2017-08-16] MEDS: Multivit/Ca/Min/Fe/FA 1 TAB TABLET PO SCH (09:10)
[2017-08-16] MEDS: Vitamin B Complex/Vit C/Vit E 1 EACH TABLET PO SCH (09:10)
[2017-08-16] MEDS: Loratadine 10 MG TABLET PO SCH (09:10)
[2017-08-16] MEDS: clonazePAM 1 MG TABLET PO SCH (09:10)
[2017-08-16] MEDS: Furosemide 40 MG TABLET PO SCH (09:10)
[2017-08-16] MEDS: amLODIPine 5 MG TABLET PO SCH (09:10)
[2017-08-16] MEDS: FISH OIL 1000 MG PO SCH (09:11)
[2017-08-16] MEDS: VIT K1 TP SCH (09:11)
[2017-08-16] MEDS: VIT E AC TP SCH (09:11)
[2017-08-16] MEDS: [UNRECOGNIZED DRUG - OTHER] TP SCH (09:11)
[2017-08-16] MEDS: *HR* HYDROcodone/Acet 7.5/325 mg TABLET PO PRN ×3 (09:19→18:31)
[2017-08-16] MEDS: *HR* LORazepam 1 MG TABLET PO SCH (17:15)
[2017-08-17] MEDS: *HR* HYDROcodone/Acet 7.5/325 mg TABLET PO PRN ×3 (00:09→11:24)
[2017-08-17] MEDS: *HR* LORazepam 1 MG TABLET PO SCH (00:09)
[2017-08-17] MEDS: *HR* Enoxaparin 30 MG/0.3 ML SYRINGE SQ SCH (05:24)
--- NOTE | 2017-08-17 07:53 | Orthopedics Progress Note ---
Date of Encounter: 08/17/17 Time of Encounter: 07:53 - Assessment and Plan (1) Hypertension Current Visit: No Status: Chronic Qualifiers: Hypertension type: essential hypertension Qualified Code(s): I10 - Essential (primary) hypertension (2) Hypothyroid Current Visit: No Status: Chronic Qualifiers: Hypothyroidism type: unspecified Qualified Code(s): E03.9 - Hypothyroidism , unspecified (3) Asthma Current Visit: No Status: Chronic Qualifiers: Asthma severity: unspecified severity Asthma persistence: unspecified Asthma complication type: unspecified Qualified Code(s): J45.909 - Unspecified asthma, uncomplicated (4) Hyperlipidemia Current Visit: No Status: Chronic Qualifiers: Hyperlipidemia type: unspecified Qualified Code(s): E78.5 - Hyperlipidemia , unspecified (5) Sarcoidosis Current Visit: No Status: Chronic (6) Sleep apnea Current Visit: No Status: Chronic Qualifiers: Sleep apnea type: unspecified type Qualified Code(s): G47.30 - Sleep apnea , unspecified (7) Obesity Current Visit: No Status: Chronic Qualifiers: Obesity type: unspecified obesity type Obesity classification: adult class 3 (BMI >= 40) Serious obesity comorbidity presence: unspecified whether serious comorbidity present Body mass index: BMI 40.0-44.9 Qualified Code(s) : E66.9 - Obesity, unspecified; Z68.41 - Body mass index (BMI) 40.0-44.9, adult ; Z68.41 - Body mass index (BMI) 40.0-44.9, adult; Z68.41 - Body mass index (BMI ) 40.0-44.9, adult; Z68.41 - Body mass index (BMI) 40.0-44.9, adult (8) Obstructive sleep apnea Current Visit: No Status: Chronic (9) Loosening of knee joint prosthesis Current Visit: No Status: Chronic Qualifiers: Encounter type: subsequent encounter Qualified Code(s): T84.038D - Mechanical loosening of other internal prosthetic joint, subsequent encounter; Z96.659 - Presence of unspecified artificial knee joint; Z96.659 - Presence of unspecified artificial knee joint (10) Status post revision of total knee replacement Current Visit: No Status: Acute Qualifiers: Laterality: right Qualified Code(s): Z96.651 - Presence of right artificial knee joint (11) Acute blood loss anemia Current Visit: No Status: Acute Subjective Interval history: Patient was seen this morning doing well complains of pain right leg. Afebrile vital signs stable. Operative extremity: Neurovascularly intact Dressing clean dry and intact Calves nontender Assessment and plan: Continue with postoperative care Discharged today Objective Vital signs: Vital Signs Temp Pulse Resp BP Pulse Ox 08/17/17 07:34 99.1 F 75 18 119/63 95 08/16/17 23:37 98.7 F 86 17 163/77 95 08/16/17 20:48 98 08/16/17 20:23 97.9 F 74 18 138/77 98 08/16/17 16:22 98.5 F 77 15 125/51 94 Intake and Output 08/16/17 08/16/17 08/17/17 15:59 23:59 07:59 Intake Total 525 / 525 Output Total 2600 / 2600 1400 / 1400 Balance -2075 / -2075 -1400 / -1400 Intake: Oral 525 / 525 Output: Urine 2600 / 2600 1400 / 1400 Other: # Voids 1 - Labs CBC & BMP: 08/16/17 05:45 08/16/17 05:45 Labs: Abnormal lab results Hgb 8.6 g/dL (11.5-15.4) L D 08/16/17 05:45 Hct 27.3 % (35.3-44.9) L 08/16/17 05:45 Carbon Dioxide 32 mEq/L (19-29) H 08/16/17 05:45 Glucose 101 mg/dL (70-99) H 08/16/17 05:45 - VTE Documentation of Mechanical Device: Venous foot pump, device Consult Discharge Plan - Plan Referrals: Oscar Mcintosh Jr, MD [Primary Care Provider] - 10/18/17 11:00 am Hans Albright MD [Partnered Physician] - 06/08/18 8:00 am Prescriptions: clonazePAM [Klonopin] 1 mg PO QAM #5 tablet
[2017-08-17] MEDS: Cholecalciferol (D-3) 1,000 UNIT TABLET PO SCH (08:57)
[2017-08-17] MEDS: Multivit/Ca/Min/Fe/FA 1 TAB TABLET PO SCH (08:58)
[2017-08-17] MEDS: amLODIPine 5 MG TABLET PO SCH (08:58)
[2017-08-17] MEDS: Aspirin Enteric Coated 81 MG Tablet PO SCH (08:58)
[2017-08-17] MEDS: Loratadine 10 MG TABLET PO SCH (08:58)
[2017-08-17] MEDS: Hyoscyamine SL 0.125 MG TAB.SUBL PO SCH (08:58)
[2017-08-17] MEDS: clonazePAM 1 MG TABLET PO SCH (08:58)
[2017-08-17] MEDS: Vitamin B Complex/Vit C/Vit E 1 EACH TABLET PO SCH (08:58)
[2017-08-17] MEDS: Furosemide 40 MG TABLET PO SCH (08:59)
[2017-08-17] MEDS: FISH OIL 1000 MG PO SCH (08:59)
[2017-08-17] MEDS: VIT K1 TP SCH (09:01)
[2017-08-17] MEDS: [UNRECOGNIZED DRUG - OTHER] TP SCH (09:01)
[2017-08-17] MEDS: VIT E AC TP SCH (09:01)
[2017-08-17 10:35] VITALS: BP 118/60
== END 2017-08-17 12:00 | DRG 467 ==
LOC: SAMDAY 07:53 → 3NENU 13:04
PROVIDERS: ADMIT Orthopaedic Surgery; ATTEND Orthopaedic Surgery

== ENCOUNTER 2021-03-11 17:54 | Observation (INO) ==
[2021-03-11] MEDS ORDERED: Aspirin 81 MG TAB.CHEW PO ONE (18:01)
[2021-03-11] MEDS ORDERED: Isovue-370 500 ML BOTTLE IVP ONE (18:11)
[2021-03-11] MEDS ORDERED: Ipratropium/Albuterol Neb 3 ML IH ONE (18:12)
[2021-03-11 19:05] LABS: Basophils # 0.1 K/mcL (0.0-0.2); Basophils % 0.9 %; Eosinophils # 0.1 K/mcL (0.0-0.6); Eosinophils % 2.4 %; Hematocrit 38.6 % (35.3-44.9); Hemoglobin 12.4 g/dL (11.5-15.4); Immature Granulocytes % 0.5 % (0-4); Lymphocytes # 1.1 K/mcL (0.6-4.6); Lymphocytes % 19.2 %; Mean Corpuscular HGB Conc 32.1 g/dL (31.6-35.5); Mean Corpuscular Hemoglobin 31.7 pg (28.0-33.3); Mean Corpuscular Volume 98.7 fL (83.0-100.0); Mean Platelet Volume 9.7 fL (9.4-12.4); Monocytes # 0.5 K/mcL (0.0-1.3); Monocytes % 9.3 %; Platelet Count 250 K/mcL (140-400); Red Blood Count 3.91 M/mcL (3.82-4.97); Red Cell Distribution Width 12.8 % (11.5-14.5); Segmented Neutrophils % 67.7 %; White Blood Count 5.8 K/mcL (4.3-11.1)
[2021-03-11 19:09] LABS: Albumin 4.1 g/dL (3.5-5.7); Albumin/Globulin Ratio 1.4 (1.1-2.2); Bilirubin,Indirect 0.3 mg/dL (0.0-1.0); Bilirubin,Total 0.3 mg/dL (0.3-1.0); Total Protein 7.1 g/dL (6.4-8.9)
[2021-03-11 19:11] LABS: BUN/Creatinine Ratio 39 (6-26); Blood Urea Nitrogen 29 mg/dL (8-23); Calcium 9.5 mg/dL (8.6-10.3); Carbon Dioxide 29 mEq/L (23-29); Chloride 105 mEq/L (98-107); Glucose 105 mg/dL (70-105); Osmolality,Calculated 296 (280-300); Potassium 4.3 mEq/L (3.5-5.1); Sodium 140 mEq/L (136-145); Troponin I < 0.03 ng/mL (< 0.04); eGFR For African Americans > 60 (> 60); eGFR For Non-African Americans > 60 (> 60)
[2021-03-11 19:12] LABS: INR 1.1; Prothrombin Time 12.2 Seconds (9.4-12.1)
[2021-03-11 19:15] LABS: Activated Partial Thrombo Time 30.9 Seconds (26.0-36.0)
[2021-03-11] MEDS ORDERED: *HR* Heparin 5,000 UNIT/ML VIAL IVP ONE (20:29)
[2021-03-11] MEDS ORDERED: *HR* Heparin 5,000 UNIT/ML VIAL IVP PRN ×2 (20:29)
[2021-03-11] MEDS ORDERED: Heparin 25,000UNIT/250ML 1/2NS 25,000 UNIT/250 ML IV.SOLN IVC SCH (20:30)
[2021-03-11 20:34] LABS: Bilirubin,Urine Negative (Negative); Blood,Urine Negative (Negative); Clarity,Urine Clear (Clear); Color,Urine Light-Yellow (Yellow); Glucose,Urine (UA) Normal (Normal); Hyaline Casts,Urine Few per lpf (None Seen); Ketones,Urine Negative (Negative); Leukocyte Esterase,Urine Trace (Negative); Nitrite,Urine Negative (Negative); Protein,Urine Negative (Neg-Trace); RBC,Urine 0-3 per hpf (0-3); Specific Gravity,Urine > 1.030 (1.010-1.025); Squamous Epithelial Cell,Urine Few per hpf (None-Few); Urobilinogen,Urine Normal (Normal); WBC,Urine 0-3 per hpf (0-3)
[2021-03-11] MEDS ORDERED: Nitroglycerin 0.4 MG TAB.SUBL SL STA (20:43)
[2021-03-11] MEDS ORDERED: Ondansetron 4 MG/2 ML VIAL IVP PRN (23:13)
[2021-03-11] MEDS ORDERED: Naloxone 0.4 MG/ML INJ IVP PRN (23:13)
[2021-03-11] MEDS ORDERED: Melatonin 3 MG TABLET PO PRN (23:13)
[2021-03-12] MEDS: Acetaminophen 325 MG TABLET PO PRN ×2 (03:00→11:24)
[2021-03-12] MEDS: *HR* LORazepam 1 MG TABLET PO PRN ×2 (03:55→11:24)
[2021-03-12] MEDS ORDERED: Regadenoson 0.4 MG/5 ML SYRINGE IVP ONE (05:56)
[2021-03-12 06:13] LABS: Basophils # 0.1 K/mcL (0.0-0.2); Basophils % 0.9 %; Eosinophils # 0.2 K/mcL (0.0-0.6); Hematocrit 38.6 % (35.3-44.9); Hemoglobin 12.4 g/dL (11.5-15.4); Immature Granulocytes % 0.1 % (0-4); Lymphocytes # 2.6 K/mcL (0.6-4.6); Lymphocytes % 32.5 %; Mean Corpuscular HGB Conc 32.1 g/dL (31.6-35.5); Mean Corpuscular Hemoglobin 31.3 pg (28.0-33.3); Mean Corpuscular Volume 97.5 fL (83.0-100.0); Mean Platelet Volume 9.6 fL (9.4-12.4); Monocytes # 0.8 K/mcL (0.0-1.3); Monocytes % 9.5 %; Neutrophils # 4.4 K/mcL (1.6-8.9); Platelet Count 242 K/mcL (140-400); Red Blood Count 3.96 M/mcL (3.82-4.97); Red Cell Distribution Width 12.9 % (11.5-14.5)
[2021-03-12 06:40] LABS: BUN/Creatinine Ratio 29 (6-26); Blood Urea Nitrogen 21 mg/dL (8-23); Calcium 9.8 mg/dL (8.6-10.3); Carbon Dioxide 28 mEq/L (23-29); Chloride 105 mEq/L (98-107); Glucose 90 mg/dL (70-105); Osmolality,Calculated 297 (280-300); Potassium 4.2 mEq/L (3.5-5.1); Sodium 142 mEq/L (136-145); Troponin I < 0.03 ng/mL (< 0.04); eGFR For African Americans > 60 (> 60); eGFR For Non-African Americans > 60 (> 60)
[2021-03-12] MEDS ORDERED: Ipratropium/Albuterol Neb 3 ML IH PRN (07:40)
[2021-03-12] MEDS ORDERED: Ipratropium/Albuterol Neb 3 ML ONE (07:41)
[2021-03-12 12:55] VITALS: BP 147/80
[2021-03-12] MEDS ORDERED: Melatonin 3 MG TABLET PO SCH (21:00)
== END 2021-03-12 16:11 | disposition home or self-care (01) ==
LOC: 3BNU 17:54 → EMEROOARM 17:54 → SUATTDRO 21:45 → 3BNU 23:04
PROVIDERS: ADMIT Internal Medicine; ATTEND Registered Nurse